=== PATIENT | female | born 1980 | race Caucasian/White ===

== ENCOUNTER 2020-09-30 14:48 | Emergency (ER) | payer OTHER, SELFPAY ==
[2020-09-30 14:56] VITALS: BP 149/88; PULSE 84; RESP 12; TEMP 36.8; O2SAT 100
--- NOTE | 2020-09-30 14:56 | ED_ITS ---
HPI - URI/Sore Throat General Chief Complaint: Upper Respiratory Infection Stated Complaint: sinus issues Source: patient Limitations: no limitations History of Present Illness HPI Narrative: The patient- previously mostly healthy- presents with half week, 3-5-day history of fatigue, myalgias with frontal/sinus congestion, loose stool x1 yesterday only, and definite loss of taste and smell for the last day which prompted her visit. No fever, cough, sore throat, sick family, travel history, vomiting/diarrhea now, rash, S OB, wheezing/sneezing, CP. Symptoms are mild unrelieved with OTC preparations Related Data Allergies Allergy/AdvReac Type Severity Reaction Status Date / Time No Known Allergies Allergy Verified 09/30/20 15:13 Review of Systems Review of Systems: Narrative: The patient has been informed that they may have pre-hypertension or Hypert ension based on a BP reading in the department. I recommend that the patient call the primary care provider listed on their discharge instructions or a physician of their choice this week to arrange follow up for further evaluation of possible pre-hypertension or Hypertension General/Constitutional: No weight loss,fever Eyes: N0: Redness,discharge Ears/Nose/Throat: No: Epistaxis,ear discharge Respiratory: Denies: Hemoptysis Gastrointestinal: No Vomiting, Bleeding-rectal Skin: No Lumps, eruption Neurologic: No Focal Weakness,Sz Hematologic: Denies: Petechiae/Purpura Psychiatric: No: Suicida ideationl All Other Systems: Reviewed and Negative PMFSH Comments At time of signature, agree with nursing past medical, surgical, social and family history. There is no relevant family history pertinent to the presenting complaint Exam Narrative: Exam Narrative: General Appearance: Well appearing, Well nourished, Conjunctiva clear Ears: Auditory canal normal Nose: Rhinorrhea, Mucousal erythema Mouth/Throat: MM moist, Uvula midline, only mild Pharyngeal erythema Neck: Supple, No adenopathy Respiratory: No respiratory distress, airway patent Cardiovascular: No JVD Musculoskeletal: Non tender, Normal strength Skin: Warm, Dry Neurological: A&O x3, Normal affect Course Vital Signs Vital signs: Vital Signs Temperature 98.3 F 09/30/20 14:56 Pulse Rate 84 09/30/20 14:56 Respiratory Rate 12 09/30/20 14:56 Blood Pressure 149/88 H 09/30/20 14:56 Pulse Oximetry 100 09/30/20 14:56 Temperature 98.3 F 09/30/20 14:56 Pulse Rate 84 09/30/20 14:56 Respiratory Rate 12 09/30/20 14:56 Blood Pressure 149/88 H 09/30/20 14:56 Pulse Oximetry 100 09/30/20 14:56 Discharge Plan Discharge Clinical Impression: Upper respiratory infection Qualifiers: URI type: unspecified URI Qualified Code(s): J06.9 - Acute upper respiratory infection, unspecified Patient Disposition: Home, Self-Care Condition: Stable Instructions: Antibiotic Form, Sinusitis (ED) Prescriptions: New azithromycin 250 mg tablet See Rx Instructions .ROUTE .COMPLEX Qty: 6 RF: 0 codeine-guaifenesin 10-100 mg/5 mL liquid 7.5 ml PO Q6H PRN (Reason: cough) Qty: 118 RF: 0 azelastine 137 mcg (0.1 %) aerosol,spray 137 mcg NASAL Q12H Qty: 30 RF: 0 Follow-up/Referrals: UNKNOWN,DOCTOR [Primary Care Provider] -
--- NOTE | 2020-10-03 09:34 | PC.NURSE ---
Pt called in inquiring about results of Covid testing; pt informed that results were positive. Notified of need for quarantine.
== END 2020-09-30 15:25 | disposition home or self-care (01) ==
PROVIDERS: Emergency Provider Emergency Medicine
DX: J06.9 Acute upper respiratory infection, unspecified (principal); Z20.828 Contact with and (suspected) exposure to other viral communicable diseases
CPT/HCPCS: 99213; G0463

== ENCOUNTER 2020-10-01 06:56 | Outpatient (NON) | payer OTHER, SELFPAY ==
[2020-10-01 18:19] LABS: SARS-CoV-2 RNA PCR Positive
== END 2020-10-01 06:57 ==
LOC: ANHCOVIDDT 06:59
PROVIDERS: Visit Provider Emergency Medicine
DX: U07.1 COVID-19 (principal)
CPT/HCPCS: 87635; C9803; U0003